=== PATIENT | female | born 1965 | race Asian ===

== ENCOUNTER 2024-01-04 07:34 | Day surgery (SDC) | payer OTHER ==
[~2024-01-04] VITALS: Ht 157.5 cm; Wt 58.5 kg
[2024-01-04] MEDS ORDERED: MEPERIDINE 100 MG INJ. 100 MG/ML VIAL ONE (07:44)
[2024-01-04] MEDS ORDERED: MIDAZOLAM HCL 5 MG/5 ML VIAL ONE (07:45)
[2024-01-04 13:14] VITALS: BP_SYST 114; PULSE 61; RESP 20; O2SAT 99
== END 2024-01-04 10:15 | disposition home or self-care (01) ==
LOC: SDS 07:34 → SMU 07:36 → SDS 10:15
PROVIDERS: ATTEND Student in an Organized Health Care Education/Training Program
DX: Z12.11 Encounter for screening for malignant neoplasm of colon (principal); D12.2 Benign neoplasm of ascending colon; K63.89 Other specified diseases of intestine; K64.8 Other hemorrhoids; K64.4 Residual hemorrhoidal skin tags; Z97.3 Presence of spectacles and contact lenses; Z80.0 Family history of malignant neoplasm of digestive organs
CPT/HCPCS: 45385; 99152; 88305; 99153; G0378; J2250; J2175; 45380